=== PATIENT | female | born 1995 | race Hispanic/Latino ===

== ENCOUNTER 2020-11-25 01:42 | Emergency (ER) | payer OTHER ==
[2020-11-25] MEDS ORDERED: SODIUM CHLORIDE 0.9% 1000 ML 1,000 ML IV ONE ×2 (02:07→05:50)
[2020-11-25] MEDS ORDERED: PANTOPRAZOLE 40 MG INJ IV STA (02:07)
[2020-11-25] MEDS ORDERED: ONDANSETRON 4 MG/2 ML INJ IV STA (02:07)
[2020-11-25] MEDS ORDERED: ONDANSETRON 4 MG/2 ML INJ ONE (02:09)
[2020-11-25] MEDS ORDERED: SODIUM CHLORIDE 0.9% 1000 ML 1,000 ML ONE (02:09)
--- NOTE | 2020-11-25 02:21 | Emergency Department Report ---
ED N/V/D HPI - General Chief complaint: Nausea/Vomiting/Diarrhea Stated complaint: EMESIS/YESSENIA Time Seen by Provider: 11/25/20 02:06 Source: patient Mode of arrival: Ambulatory Limitations: No Limitations - History of Present Illness Initial comments: 25-year-old female with a elevated BMI and Past medical history of asthma department complaining of waking up this morning with nausea chest ache and one vomiting episode of what she calls dark blood of unknown etiology. A vague n non-productive cough she reports no fever no fever, chills, sweats reports no new no melena no bloody stool no hematuria reports no EtOH use. Reports no palliative or provocative factors to her to her knowledge thinks symptoms may have been related to something that she ate that she did eat some mostly food that some cheese, chicken on sour cream. MD complaint: nausea, vomiting -: Gradual Description of Vomiting: blood-streaked Location: diffuse Radiation: none Severity: mild Quality: aching, dull Consistency: constant Improves with: none Worsens with: none Context: sick contacts (COVID-19 is a possibility) Associated Symptoms: nausea/vomiting. denies: cough, loss of appetite, malaise, shortness of breath, syncope, weakness - Related Data Previous Rx's Medication Instructions Recorded Last Taken Type Acetaminophen [Non-Aspirin Extra 500 mg PO Q6HR PRN #30 tablet 11/25/20 Unknown Rx Strength] Varsha Root [Varsha] 250 mg PO QID PRN #30 capsule 11/25/20 Unknown Rx Ondansetron [Zofran Odt] 4 mg PO Q8HR PRN #20 tab.rapdis 11/25/20 Unknown Rx Promethazine [Phenergan] 25 mg WA Q6HR PRN #15 supp.rect 11/25/20 Unknown Rx Allergies Allergy/AdvReac Type Severity Reaction Status Date / Time No Known Allergies Allergy Verified 11/25/20 02:04 ED Review of Systems ROS: Stated complaint: EMESIS/YESSENIA Other details as noted in HPI Comment: All other systems reviewed and negative ED Past Medical Hx - Past Medical History Previous Medical History?: No - Surgical History Past Surgical History?: No - Social History Smoking Status: Never Smoker Substance Use Type: None - Medications Home Medications: Home Medications Medication Instructions Recorded Confirmed Last Taken Type Acetaminophen [Non-Aspirin Extra 500 mg PO Q6HR PRN #30 tablet 11/25/20 Unknown Rx Strength] Varsha Root [Varsha] 250 mg PO QID PRN #30 capsule 11/25/20 Unknown Rx Ondansetron [Zofran Odt] 4 mg PO Q8HR PRN #20 tab.rapdis 11/25/20 Unknown Rx Promethazine [Phenergan] 25 mg WA Q6HR PRN #15 supp.rect 11/25/20 Unknown Rx ED Physical Exam - General Limitations: No Limitations General appearance: alert, in no apparent distress - Head Head exam: Present: atraumatic, normocephalic - Eye Eye exam: Present: normal appearance, PERRL, EOMI Pupils: Present: normal accommodation - ENT ENT exam: Present: normal exam, normal orophraynx, mucous membranes moist, TM's normal bilaterally - Neck Neck exam: Present: normal inspection, full ROM - Respiratory Respiratory exam: Present: normal lung sounds bilaterally. Absent: respiratory distress, wheezes, rales, rhonchi, chest wall tenderness, accessory muscle use - Cardiovascular Cardiovascular Exam: Present: regular rate, normal rhythm. Absent: systolic murmur, diastolic murmur, rubs, gallop - GI/Abdominal GI/Abdominal exam: Present: soft, normal bowel sounds. Absent: distended, tenderness, guarding, organomegaly, mass, pulsatile mass - Extremities Exam Extremities exam: Present: normal inspection - Back Exam Back exam: Present: normal inspection - Neurological Exam Neurological exam: Present: alert, oriented X3 - Psychiatric Psychiatric exam: Present: normal affect, normal mood - Skin Skin exam: Present: warm, dry, intact, normal color. Absent: rash ED Course Vital Signs 11/25/20 11/25/20 11/25/20 01:44 02:04 05:43 Temperature 99.5 F Pulse Rate 120 H Respiratory 16 20 Rate Blood Pressure 120/86 113/70 O2 Sat by Pulse 97 100 Oximetry 11/25/20 11/25/20 11/25/20 05:49 08:29 08:30 Temperature 103.1 F H Pulse Rate 124 H 129 H 124 H Respiratory 14 15 Rate Blood Pressure 102/50 O2 Sat by Pulse 99 99 Oximetry 11/25/20 11/25/20 11/25/20 08:45 09:00 09:05 Temperature Pulse Rate 125 H Respiratory 14 16 Rate Blood Pressure 102/50 102/50 O2 Sat by Pulse 99 98 91 Oximetry 11/25/20 11/25/20 11/25/20 09:15 09:31 09:45 Temperature Pulse Rate Respiratory Rate Blood Pressure 102/50 104/50 104/50 O2 Sat by Pulse 98 97 98 Oximetry 11/25/20 11/25/20 11/25/20 10:00 10:01 10:15 Temperature 100.9 F H Pulse Rate 112 H 118 H Respiratory 21 20 Rate Blood Pressure 99/50 99/50 O2 Sat by Pulse 98 99 Oximetry 11/25/20 11/25/20 11/25/20 10:31 10:46 11:33 Temperature Pulse Rate 117 H 115 H Respiratory 22 19 Rate Blood Pressure 105/50 105/50 105/50 O2 Sat by Pulse 99 98 98 Oximetry 11/25/20 11/25/20 11/25/20 11:45 12:00 12:01 Temperature 99.3 F Pulse Rate Respiratory Rate Blood Pressure 105/50 105/50 O2 Sat by Pulse 97 95 Oximetry 11/25/20 11/25/20 11/25/20 12:15 12:31 12:45 Temperature Pulse Rate 100 H 98 H 93 H Respiratory 17 14 16 Rate Blood Pressure 111/56 105/53 105/53 O2 Sat by Pulse 96 97 97 Oximetry 11/25/20 11/25/20 11/25/20 13:01 13:15 13:31 Temperature Pulse Rate 85 97 H Respiratory 28 H 17 Rate Blood Pressure 107/57 107/57 105/50 O2 Sat by Pulse 96 99 97 Oximetry 11/25/20 11/25/20 13:45 13:53 Temperature 99.7 F H Pulse Rate 88 Respiratory 14 Rate Blood Pressure 105/50 O2 Sat by Pulse 97 Oximetry ED Medical Decision Making - Lab Data Result diagrams: 11/25/20 02:44 11/25/20 02:44 - Medical Decision Making Problem 1 abdominal pain This patient presents with a vague and faint abdominal pain of unclear etiology. Their evaluation has not identified a emergent etiology for the abdominal pain. Specifically, given the very benign exam, normal laboratory studies, and lack of significant risk factors, I have a very low suspicion for appendicitis, ischemic bowel, bowel perforation, or any other life threatening disease. I have discussed with the patient the level of uncertainty with undifferentiated abdominal pain and clearly explained the need to follow-up as noted on the discharge instructions, or return to the Emergency Department immediately if the pain worsens, develops fever, persistent and uncontrollable vomiting, or for any new symptoms or concerns. I discussed with the patient that this presentation today for abdominal pain could represent a significant risk for an acute abdominal process. Although the tests in the ED were essentially normal, there is still a possibility of a process such as appendicitis, diverticulitis, cholecystitis, ulcer, early bowel obstruction, mesenteric ischemia, kidney stone, or even kidney infection which could subsequently cause disability or . The patient understands that they must return within 24 hours for a recheck or see their physician within 24 hours for re-exam due to the possibility of significant surgical or medical process. Problem 2 vomiting the cause of the patient symptoms not clear but the patient is overall well- appearing and suspected to have a transient course of illness. Given the course and examination does not appear to be an emergent cause of the symptoms such as small bowel obstruction, coronary syndrome, bowel ischemia, DKA, pancreatitis, appendicitis, other acute abdomen or other emergent problem. Reassessment after treatment the patient is feeling much much better tolerating p.o. fluids and shows no signs of any dehydration. Disposition discharge home with prompt primary care physician follow-up in the next 24 hours strict return precautions were discussed Critical care attestation.: If time is entered above; I have spent that time in minutes in the direct care of this critically ill patient, excluding procedure time. ED Disposition Clinical Impression: Acute febrile illness, Nausea and vomiting, Food poisoning Disposition: 01 HOME / SELF CARE / HOMELESS Is pt being admited?: No Does the pt Need Aspirin: No Condition: Good Instructions: Viral Gastroenteritis, Adult, Nausea and Vomiting, Adult, [id number] Additional Instructions: Advance diet as tolerated. Drink plenty of fluids. Avoid consumption of Motrin, ibuprofen, Naprosyn, Aleve, alcohol, heavy and spicy foods, and do not take metformin medication for the next 2 days, if patient takes this medication. When advancing diet, start with clear fluids, Pedialyte, water, or Gatorade mixed with water, 50/50%. When ready to consume solid food, start with salty soup, bread, rice Please follow-up with your primary care doctor within the next 3 to 5 days. Please return to the emergency room right away with new pain, worsened pain, migration of pain, projectile vomiting, change in mental status, confusion, inability to tolerate liquid feeds, new, worsened or different symptoms not present on the initial emergency room evaluation. For the patient's convenience, a number of local primary care doctors as well as [facility] doctors have been listed that she may follow-up with. Prescriptions: Varsha Root [Varsha] 250 mg PO QID PRN #30 capsule PRN Reason: Nausea Acetaminophen [Non-Aspirin Extra Strength] 500 mg PO Q6HR PRN #30 tablet PRN Reason: Pain , Severe (7-10) Promethazine [Phenergan] 25 mg WA Q6HR PRN #15 supp.rect PRN Reason: Nausea Ondansetron [Zofran Odt] 4 mg PO Q8HR PRN #20 tab.rapdis PRN Reason: Nausea Referrals: [facility] [Provider Group] - 3-5 Days [facility] [Provider Group] - 3-5 Days [facility] [Provider Group] - 3-5 Days [facility] [Primary Care Provider] - 3-5 Days Forms: Work/School Release Form(ED)
[2020-11-25 03:18] LABS: Alanine Aminotransferase 19 units/L (7-56); Albumin 3.9 g/dL (3.9-5); BUN/Creatinine Ratio 25; Blood Urea Nitrogen 20 mg/dL (7-17); Calcium 8.7 mg/dL (8.4-10.2); Hemolysis Index 311
[2020-11-25 03:23] LABS: Basophils % (Auto) 0.1 % (0.0-1.8); Eosinophils # (Auto) 0.1 K/mm3 (0.0-0.4); Eosinophils % (Auto) 0.9 % (0.0-4.3); Hematocrit 39.6 % (30.3-42.9); Hemoglobin 13.9 gm/dl (10.1-14.3); Lymphocytes # (Auto) 1.1 K/mm3 (1.2-5.4); Lymphocytes % (Auto) 10.3 % (13.4-35.0); Mean Corpuscular HGB Conc 35 % (30-34); Mean Corpuscular Volume 87 fl (79-97); Monocytes # (Auto) 0.6 K/mm3 (0.0-0.8); Monocytes % (Auto) 5.5 % (0.0-7.3); Platelet Count 203 K/mm3 (140-440); Red Blood Count 4.54 M/mm3 (3.65-5.03); Red Cell Distribution Width 12.4 % (13.2-15.2)
[2020-11-25] MEDS ORDERED: diphenhydrAMINE 50 MG/ML VIAL IV ONE (04:25)
[2020-11-25] MEDS ORDERED: METOCLOPRAMIDE 10 MG/2 ML INJ IV ONE (04:25)
--- NOTE | 2020-11-25 04:25 | XRay Report ---
CHEST 2 VIEWS INDICATION / CLINICAL INFORMATION: sob and chest pain. FINDINGS: SUPPORT DEVICES: None. HEART / MEDIASTINUM: No significant abnormality. LUNGS / PLEURA: No significant pulmonary or pleural abnormality. No pneumothorax. ADDITIONAL FINDINGS: No significant additional findings. IMPRESSION: 1. No acute findings. Signer Name: Josesito Marino MD Signed: 11/25/2020 4:21 AM Workstation Name: [id number]
[2020-11-25] MEDS ORDERED: IBUPROFEN 800 MG TAB PO ONE (05:44)
[2020-11-25] MEDS ORDERED: ACETAMINOPHEN 500 MG TAB PO ONE (05:44)
[2020-11-25] MEDS ORDERED: LACTATED RINGERS 2,000 ML IV ONE (08:01)
[2020-11-25] MEDS ORDERED: HALOPERIDOL LACTATE 5 MG/1 ML INJ IM ONE (08:01)
--- NOTE | 2020-11-25 08:07 | Emergency Department Report ---
ED General Adult HPI - General Chief complaint: Nausea/Vomiting/Diarrhea Stated complaint: Nausea vomiting and back pain PUI?: No Time Seen by Provider: 11/25/20 02:06 Source: patient, RN notes reviewed, old records reviewed Mode of arrival: Ambulatory Limitations: No Limitations - History of Present Illness Initial comments: The patient was evaluated in the emergency department for symptoms described in the history of present illness. He/she was evaluated in the context of the global COVID-19 pandemic, which necessitated consideration that the patient might be at risk for infection with the virus that causes COVID-19. I nstitutional protocols and algorithms that pertain to the evaluation of patients at risk for COVID-19 are in a state of rapid change based on information released by regulatory bodies including the CDC and federal and state organizations. These policies and algorithms were followed during the patient's care in the emergency department. Please note that these policies, procedures and recommendations changed on a rapid basis. The patient is a 25-year-old female, who is not known to myself previously. The patient has a history of BMI 34.9, is not vaccinated against COVID-19, and PCOS. She recently moved here from [place]. The patient presents to the ER today with complaint of unopposed nausea and vomiting without diarrhea. The patient thinks that she ate some tacos or sour cream last night which were not fresh. The patient also reports that she recently completed a course of 2 antibiotics for PID, prescribed from [place]. She does not know the name of the antibiotics, but completed her antibiotic course this past Tuesday. She does report consuming wine over the weekend. The patient denies headache, neck pain, chest pain, dysuria, loss of taste and smell. The patient was seen in this emergency room this morning by one of our physician assistants, had laboratory studies obtained, and was treated supportively and symptomatically. The patient was initially placed up for discharge, but she reported persistent nausea, and was found to be tachycardic with a heart rate of 140 bpm. Thus, second opinion is requested. -: Gradual, hour(s) Location: back Severity scale (0 -10): 8 Quality: aching Consistency: constant Improves with: rest Worsens with: eating - Related Data Previous Rx's Medication Instructions Recorded Last Taken Type Acetaminophen [Non-Aspirin Extra 500 mg PO Q6HR PRN #30 tablet 11/25/20 Unknown Rx Strength] Varsha Root [Varsha] 250 mg PO QID PRN #30 capsule 11/25/20 Unknown Rx Ondansetron [Zofran Odt] 4 mg PO Q8HR PRN #20 tab.rapdis 11/25/20 Unknown Rx Promethazine [Phenergan] 25 mg ND Q6HR PRN #15 supp.rect 11/25/20 Unknown Rx Allergies Allergy/AdvReac Type Severity Reaction Status Date / Time No Known Allergies Allergy Verified 11/25/20 02:04 ED Review of Systems ROS: Stated complaint: EMESIS/YESSENIA Other details as noted in HPI Constitutional: malaise, weakness, other (Denies loss of taste and). denies: fever Eyes: denies: eye discharge Respiratory: denies: shortness of breath Cardiovascular: denies: chest pain Gastrointestinal: nausea, vomiting. denies: diarrhea Genitourinary: denies: dysuria Musculoskeletal: back pain Neurological: weakness Psychiatric: anxiety Hematological/Lymphatic: denies: easy bleeding ED Past Medical Hx - Past Medical History Previous Medical History?: No - Surgical History Past Surgical History?: No - Social History Smoking Status: Never Smoker Substance Use Type: None - Medications Home Medications: Home Medications Medication Instructions Recorded Confirmed Last Taken Type Acetaminophen [Non-Aspirin Extra 500 mg PO Q6HR PRN #30 tablet 11/25/20 Unknown Rx Strength] Varsha Root [Varsha] 250 mg PO QID PRN #30 capsule 11/25/20 Unknown Rx Ondansetron [Zofran Odt] 4 mg PO Q8HR PRN #20 tab.rapdis 11/25/20 Unknown Rx Promethazine [Phenergan] 25 mg ND Q6HR PRN #15 supp.rect 11/25/20 Unknown Rx ED Physical Exam - General Limitations: No Limitations General appearance: alert, anxious, obese - Head Head exam: Present: atraumatic, normocephalic - Eye Eye exam: Present: normal appearance, EOMI. Absent: nystagmus - ENT ENT exam: Present: normal exam, normal orophraynx, mucous membranes moist, no rmal external ear exam - Neck Neck exam: Present: normal inspection, full ROM. Absent: tenderness, meningismus - Respiratory Respiratory exam: Present: normal lung sounds bilaterally. Absent: respiratory distress, wheezes, rales, rhonchi, stridor, decreased breath sounds - Cardiovascular Cardiovascular Exam: Present: normal rhythm, tachycardia, normal heart sounds. Absent: bradycardia, irregular rhythm, systolic murmur, diastolic murmur, rubs, gallop - GI/Abdominal GI/Abdominal exam: Present: soft. Absent: distended, tenderness, guarding, rebound, rigid, pulsatile mass - Extremities Exam Extremities exam: Present: normal inspection, full ROM, other (2+ pulses noted in the bilateral upper and lower extremities. There is no palpable cord. negative Homans sign. Muscular compartments are soft. The pelvis is stable.). Absent: pedal edema, calf tenderness - Back Exam Back exam: Present: normal inspection, full ROM, paraspinal tenderness. Absent: tenderness, CVA tenderness (R), CVA tenderness (L), vertebral tenderness - Neurological Exam Neurological exam: Present: alert, oriented X3, other (No facial droop. Tongue midline. Extraocular movements intact bilaterally. Facial sensation intact to light touch in V1, V2, V3 distribution bilaterally. 5 and a 5 strength in 4 extremities. Sensation intact to light touch in 4 extremities.). Absent: motor sensory deficit - Psychiatric Psychiatric exam: Present: anxious - Skin Skin exam: Present: warm, dry, intact, normal color. Absent: rash ED Course Vital Signs 11/25/20 11/25/20 11/25/20 01:44 02:04 05:43 Temperature 99.5 F Pulse Rate 120 H Respiratory 16 20 Rate Blood Pressure 120/86 113/70 O2 Sat by Pulse 97 100 Oximetry 11/25/20 11/25/20 11/25/20 05:49 08:29 08:30 Temperature 103.1 F H Pulse Rate 124 H 129 H 124 H Respiratory 14 15 Rate Blood Pressure 102/50 O2 Sat by Pulse 99 99 Oximetry 11/25/20 11/25/20 11/25/20 08:45 09:05 09:15 Temperature Pulse Rate 125 H Respiratory 14 Rate Blood Pressure 102/50 102/50 102/50 O2 Sat by Pulse 99 91 98 Oximetry 11/25/20 11/25/20 11/25/20 09:31 09:45 10:00 Temperature 100.9 F H Pulse Rate Respiratory Rate Blood Pressure 104/50 104/50 O2 Sat by Pulse 97 98 Oximetry 11/25/20 11/25/20 11/25/20 10:01 10:15 10:31 Temperature Pulse Rate 112 H 118 H 117 H Respiratory 21 20 22 Rate Blood Pressure 99/50 99/50 105/50 O2 Sat by Pulse 98 99 99 Oximetry 11/25/20 11/25/20 11/25/20 10:46 11:33 11:45 Temperature Pulse Rate 115 H Respiratory 19 Rate Blood Pressure 105/50 105/50 105/50 O2 Sat by Pulse 98 98 97 Oximetry 11/25/20 11/25/20 11/25/20 12:00 12:01 12:15 Temperature 99.3 F Pulse Rate 100 H Respiratory 17 Rate Blood Pressure 105/50 111/56 O2 Sat by Pulse 95 96 Oximetry 11/25/20 11/25/20 11/25/20 12:31 12:45 13:01 Temperature Pulse Rate 98 H 93 H 85 Respiratory 14 16 28 H Rate Blood Pressure 105/53 105/53 107/57 O2 Sat by Pulse 97 97 96 Oximetry - Reevaluation(s) Reevaluation #1: 11/25/20 08:09 Differential diagnosis, including but not limited to: Enteritis, foodborne illness, appendicitis, renal colic, obstruction, urinary tract infection, medication interaction Assessment and plan: 25-year-old female with unopposed nausea and vomiting, lower back pain, low-grade temperature, who to me, denies headache, neck pain, chest pain, DVT and pulmonary embolism risk factors, unremarkable x-ray of the chest, unremarkable EKG, who does not consume marijuana by history, presenting with abnormal vital signs, unopposed nausea and vomiting, in spite of conservative therapy. We will treat her symptoms with haloperidol, IV fluids, obtain urinalysis, obtain CT scan of the abdomen pelvis, and reassess. I have also requested that medications be reconciled, to determine if the possibility of a disulfiram-like reaction. I discussed this plan of care with the patient. She articulated understanding. All questions answered. Reassess 11/25/20 08:33 Patient spiked a fever to 103 degrees. She received Tylenol and ibuprofen approximately 3 hours ago. Too early to readminister antipyretics. 11/25/20 10:17 Patient resting comfortably. Heart rate 110 bpm. Blood pressure 99/70 systolic. No active vomiting. We will order Tylenol. CT scan abdomen pelvis negative for acute findings. Urinalysis pending. Additional IV fluids ordered. 11/25/20 12:50 Multiple repeat evaluations performed on this patient. Heart rate now 97 bpm. She has defervesced. I gave the patient ice water personally, and she did not vomit. She states she completed azithromycin and metronidazole this past Tuesday. The patient provided a urine sample. It was sent to the lab. However, I called up the lab, and they state that they do not have the urine sample. This is contributing to a delay in disposition. Patient continues to sleep comfortably in stretcher, and she is not in any acute distress at this time. Have requested that care team track down urinalysis. 11/25/20 13:17 Final reevaluation. Urinalysis negative for acute findings. No active vomiting. Patient endorses significant improvement in symptoms. She endorses readiness for discharge. I discussed the significance of her findings with her. She articulated understanding. Return precautions are reviewed. ED Medical Decision Making - Lab Data Result diagrams: 11/25/20 02:44 11/25/20 02:44 Vital Signs 11/25/20 11/25/20 11/25/20 01:44 02:04 05:43 Temperature 99.5 F Pulse Rate 120 H Respiratory 16 20 Rate Blood Pressure 120/86 113/70 O2 Sat by Pulse 97 100 Oximetry 11/25/20 05:49 Temperature Pulse Rate 124 H Respiratory Rate Blood Pressure O2 Sat by Pulse Oximetry Lab Results 11/25/20 11/25/20 11/25/20 Range/Units 02:44 02:44 02:44 WBC 10.9 (4.5-11.0) K/mm3 RBC 4.54 (3.65-5.03) M/mm3 Hgb 13.9 (10.1-14.3) gm/dl Hct 39.6 (30.3-42.9) % MCV 87 (79-97) fl MCH 31 (28-32) pg MCHC 35 H (30-34) % RDW 12.4 L (13.2-15.2) % Plt Count 203 (140-440) K/mm3 Lymph % (Auto) 10.3 L (13.4-35.0) % Moffat % (Auto) 5.5 (0.0-7.3) % Eos % (Auto) 0.9 (0.0-4.3) % Baso % (Auto) 0.1 (0.0-1.8) % Lymph # (Auto) 1.1 L (1.2-5.4) K/mm3 Moffat # (Auto) 0.6 (0.0-0.8) K/mm3 Eos # (Auto) 0.1 (0.0-0.4) K/mm3 Baso # (Auto) 0.0 (0.0-0.1) K/mm3 Seg Neutrophils % 83.2 H (40.0-70.0) % Seg Neutrophils # 9.1 H (1.8-7.7) K/mm3 Sodium 138 (137-145) mmol/L Potassium 5.2 H (3.6-5.0) mmol/L Chloride 102.8 (98-107) mmol/L Carbon Dioxide 26 (22-30) mmol/L Anion Gap 14 mmol/L BUN 20 H (7-17) mg/dL Creatinine 0.8 (0.6-1.2) mg/dL Estimated GFR > 60 ml/min BUN/Creatinine Ratio 25 % Glucose 107 H (65-100) mg/dL Calcium 8.7 (8.4-10.2) mg/dL Total Bilirubin 0.30 (0.1-1.2) mg/dL AST 42 H (5-40) units/L ALT 19 (7-56) units/L Alkaline Phosphatase 48 (35-129) units/L Total Protein 6.7 (6.3-8.2) g/dL Albumin 3.9 (3.9-5) g/dL Albumin/Globulin Ratio 1.4 % Lipase 41 (13-60) units/L HCG, Qual (Negative) 11/25/20 Range/Units 02:44 WBC (4.5-11.0) K/mm3 RBC (3.65-5.03) M/mm3 Hgb (10.1-14.3) gm/dl Hct (30.3-42.9) % MCV (79-97) fl MCH (28-32) pg MCHC (30-34) % RDW (13.2-15.2) % Plt Count (140-440) K/mm3 Lymph % (Auto) (13.4-35.0) % Moffat % (Auto) (0.0-7.3) % Eos % (Auto) (0.0-4.3) % Baso % (Auto) (0.0-1.8) % Lymph # (Auto) (1.2-5.4) K/mm3 Moffat # (Auto) (0.0-0.8) K/mm3 Eos # (Auto) (0.0-0.4) K/mm3 Baso # (Auto) (0.0-0.1) K/mm3 Seg Neutrophils % (40.0-70.0) % Seg Neutrophils # (1.8-7.7) K/mm3 Sodium (137-145) mmol/L Potassium (3.6-5.0) mmol/L Chloride (98-107) mmol/L Carbon Dioxide (22-30) mmol/L Anion Gap mmol/L BUN (7-17) mg/dL Creatinine (0.6-1.2) mg/dL Estimated GFR ml/min BUN/Creatinine Ratio % Glucose (65-100) mg/dL Calcium (8.4-10.2) mg/dL Total Bilirubin (0.1-1.2) mg/dL AST (5-40) units/L ALT (7-56) units/L Alkaline Phosphatase (35-129) units/L Total Protein (6.3-8.2) g/dL Albumin (3.9-5) g/dL Albumin/Globulin Ratio % Lipase (13-60) units/L HCG, Qual Negative (Negative) - EKG Data -: EKG Interpreted by In EKG shows normal: sinus rhythm Rate: tachycardia - EKG Data 11/25/20 08:09 EKG interpreted by myself at 08: 0 9 AM Sinus rhythm, tachycardia, rate 108 bpm. Normal axis, QTC 440 ms. Minimal motion artifact. Abnormal EKG. Not a STEMI. No prior for comparison - Radiology Data Radiology results: pending, report reviewed, image reviewed CHEST 2 VIEWS INDICATION / CLINICAL INFORMATION: sob and chest pain. FINDINGS: SUPPORT DEVICES: None. HEART / MEDIASTINUM: No significant abnormality. LUNGS / PLEURA: No significant pulmonary or pleural abnormality. No pneumothorax. ADDITIONAL FINDINGS: No significant additional findings. IMPRESSION: 1. No acute findings. Signer Name: Josesito Marino MD Signed: 11/25/2020 3:21 AM Workstation Name: [id number] CT ABDOMEN AND PELVIS WITH CONTRAST INDICATION / CLINICAL INFORMATION: lower back pain n/v omni 300 100ml. TECHNIQUE: Axial CT images were obtained through the abdomen and pelvis after 100 cc Omnipaque 300 IV contrast. Sagittal and coronal reformatted images. All CT scans at this location are performed using CT dose reduction for ALARA by means of automated exposure control. COMPARISON: None available. FINDINGS: LOWER CHEST: No significant abnormality. LIVER: No significant abnormality. GALLBLADDER: No significant abnormality. BILE DUCTS: No significant abnormality. PANCREAS: No significant abnormality. SPLEEN: No significant abnormality. ADRENALS: No significant abnormality. RIGHT KIDNEY and URETER: No significant abnormality. LEFT KIDNEY and URETER: No significant abnormality. STOMACH and SMALL BOWEL: No significant abnormality. COLON: No significant abnormality. APPENDIX: No significant abnormality. PERITONEUM: No free fluid. No free air. No fluid collection. LYMPH NODES: No significant adenopathy. AORTA and ARTERIES: No significant abnormality. IVC and VEINS: No significant abnormality. URINARY BLADDER: No significant abnormality. REPRODUCTIVE ORGANS: Small simple appearing left ovarian cyst measures 1.3 cm. The uterus and right ovary are unremarkable. ADDITIONAL FINDINGS: None. SKELETAL SYSTEM: No significant abnormality. No significant degenerative changes. IMPRESSION: 1.3 cm left ovarian cyst, otherwise, unremarkable exam. Signer Name: Reinaldo Curry Jr, MD Signed: 11/25/2020 8:44 AM Workstation Name: [id number] Critical care attestation.: If time is entered above; I have spent that time in minutes in the direct care of this critically ill patient, excluding procedure time. ED Disposition Clinical Impression: Acute febrile illness, Nausea and vomiting, Food poisoning Disposition: 01 HOME / SELF CARE / HOMELESS Is pt being admited?: No Does the pt Need Aspirin: No Condition: Good Instructions: Viral Gastroenteritis, Adult, Nausea and Vomiting, Adult, [id number] Additional Instructions: Advance diet as tolerated. Drink plenty of fluids. Avoid consumption of Motrin, ibuprofen, Naprosyn, Aleve, alcohol, heavy and spicy foods, and do not take metformin medication for the next 2 days, if patient takes this medication. When advancing diet, start with clear fluids, Pedialyte, water, or Gatorade mixed with water, 50/50%. When ready to consume solid food, start with salty soup, bread, rice Please follow-up with your primary care doctor within the next 3 to 5 days. Please return to the emergency room right away with new pain, worsened pain, migration of pain, projectile vomiting, change in mental status, confusion, inability to tolerate liquid feeds, new, worsened or different symptoms not present on the initial emergency room evaluation. For the patient's convenience, a number of local primary care doctors as well as [facility] doctors have been listed that she may follow-up with. Prescriptions: Hyoscyamine Subl [Levsin Sl 0.125 TAB] 0.125 mg SL Q6HR #14 tab Ondansetron [Zofran ODT TAB] 8 mg PO Q8HR #14 tab.rapdis Referrals: [facility] [Provider Group] - 3-5 Days [facility] [Primary Care Provider] - 3-5 Days [facility] [Provider Group] - 3-5 Days [facility] [Provider Group] - 3-5 Days Forms: Work/School Release Form(ED)
--- NOTE | 2020-11-25 09:49 | Cat Scan Report ---
CT ABDOMEN AND PELVIS WITH CONTRAST INDICATION / CLINICAL INFORMATION: lower back pain n/v omni 300 100ml. TECHNIQUE: Axial CT images were obtained through the abdomen and pelvis after 100 cc Omnipaque 300 IV contrast. Sagittal and coronal reformatted images. All CT scans at this location are performed using CT dose re duction for ALARA by means of automated exposure control. COMPARISON: None available. FINDINGS: LOWER CHEST: No significant abnormality. LIVER: No significant abnormality. GALLBLADDER: No significant abnormality. BILE DUCTS: No significant abnormality. PANCREAS: No significant abnormality. SPLEEN: No significant abnormality. ADRENALS: No significant abnormality. RIGHT KIDNEY and URETER: No significant abnormality. LEFT KIDNEY and URETER: No significant abnormality. STOMACH and SMALL BOWEL: No significant abnormality. COLON: No significant abnormality. APPENDIX: No significant abnormality. PERITONEUM: No free fluid. No free air. No fluid collection. LYMPH NODES: No significant adenopathy. AORTA and ARTERIES: No significant abnormality. IVC and VEINS: No significant abnormality. URINARY BLADDER: No significant abnormality. REPRODUCTIVE ORGANS: Small simple appearing left ovarian cyst measures 1.3 cm. The uterus and right o vary are unremarkable. ADDITIONAL FINDINGS: None. SKELETAL SYSTEM: No significant abnormality. No significant degenerative changes. IMPRESSION: 1.3 cm left ovarian cyst, otherwise, unremarkable exam. Signer Name: Reinaldo Curry Jr, MD Signed: 11/25/2020 9:44 AM Workstation Name: [id number]
[2020-11-25] MEDS ORDERED: ACETAMINOPHEN 325 MG TAB PO STA (10:16)
[2020-11-25] MEDS ORDERED: LACTATED RINGERS 1,000 ML IV ONE (10:16)
[2020-11-25 12:58] LABS: Bilirubin,Urine NEG (Negative); Blood,Urine NEG (Negative); Color,Urine Yellow (Yellow); Mucus,Urine FEW /HPF; Protein,Urine <15 mg/dL mg/dL (Negative); Urobilinogen,Urine < 2.0 mg/dL (<2.0)
[2020-11-25 13:54] VITALS: BP 105/50
--- NOTE | 2020-11-26 11:46 | Electrocardiograph Report ---
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
== END 2020-11-25 13:54 | disposition home or self-care (01) ==
LOC: ED 01:42
DX: R50.9 Fever, unspecified (principal); R11.2 Nausea with vomiting, unspecified; A05.9 Bacterial foodborne intoxication, unspecified
CPT/HCPCS: 36415; 71046; 74177; 80053; 81001; 83690; 84703; 85025; 93005; 96361; 96372; 96374; 96375; 99285; C9113; J1200; J1630; J2405; J2765; J7030; J7120; Q9967